=== PATIENT | male | born 1990 | race American Indian/Alaskan Native ===

== ENCOUNTER 2017-01-05 00:48 | Emergency (ER) | payer SELFPAY ==
[2017-01-05 01:48] VITALS: BP 121/71
[2017-01-05] MEDS ORDERED: XYLOCAINE 1% MPF 5 mL INFILTRATI ONE (05:49)
[2017-01-05] MEDS ORDERED: ROCEPHIN IM ONE (05:49)
[2017-01-05] MEDS ORDERED: ZITHROMAX PO ONE (05:49)
--- NOTE | 2017-01-05 05:53 | Emergency Department Report ---
ED Male HPI - General Chief complaint: Urogenital-Male Stated complaint: PENILE DISCOMFORT Time Seen by Provider: 01/05/17 05:42 Source: patient Mode of arrival: Ambulatory Limitations: No Limitations - History of Present Illness Initial comments: This is a 26-year-old male nontoxic, well nourished in appearance, no acute signs of distress the ED complaining of penile discharge with foul odor and painful ulcer to the penile area. Patient that he had unprotected sex last week followed by developing these symptoms 2 days after. Patient denies any history of HIV or STD exposure. Patient denies any allergies or past medical history. Denies any testicle pain, dysuria, polyuria, back pain, bowel pain, testicular swelling, nausea, vomiting, pelvic pain, chest pain, shortness of breath, or numbness or tingling. MD Complaint: penile discharge, other (penile ulcer) -: Gradual, days(s) (2) Location: penis Radiation: none Severity: mild Severity scale (0 -10): 6 Quality: aching Consistency: constant Improves with: none Worsens with: none discharge, other (ulcer). denies: swelling, mass, rash, urinary retention, blood in urine, dysuria, fever, nausea/vomiting, incontinence - Related Data Sexually active: Yes Previous Rx's Medication Instructions Recorded Last Taken Type Acyclovir [Zovirax Cap] 200 mg PO 5XD 10 Days 01/05/17 Unknown Rx Allergies Allergy/AdvReac Type Severity Reaction Status Date / Time No Known Allergies Allergy Unverified 01/05/17 02:46 ED Review of Systems ROS: Stated complaint: PENILE DISCOMFORT Other details as noted in HPI Constitutional: denies: chills, fever Eyes: denies: eye pain, eye discharge, vision change ENT: denies: ear pain, throat pain Respiratory: denies: cough, shortness of breath, wheezing Cardiovascular: denies: chest pain, palpitations Endocrine: no symptoms reported Gastrointestinal: denies: abdominal pain, nausea, diarrhea Genitourinary: denies: urgency, dysuria Musculoskeletal: denies: back pain, joint swelling, arthralgia Skin: denies: rash, lesions Neurological: denies: headache, weakness, paresthesias Psychiatric: denies: anxiety, depression Hematological/Lymphatic: denies: easy bleeding, easy bruising ED Past Medical Hx - Past Medical History Previous Medical History?: No - Surgical History Past Surgical History?: No - Social History Smoking Status: Current Every Day Smoker Substance Use Type: Alcohol - Medications Home Medications: Home Medications Medication Instructions Recorded Confirmed Last Taken Type Acyclovir [Zovirax Cap] 200 mg PO 5XD 10 Days 01/05/17 Unknown Rx ED Physical Exam - General Limitations: No Limitations General appearance: alert, in no apparent distress - Head Head exam: Present: atraumatic, normocephalic, normal inspection - Eye Eye exam: Present: normal appearance, PERRL, EOMI. Absent: scleral icterus, conjunctival injection, nystagmus, periorbital swelling, periorbital tenderness Pupils: Present: normal accommodation - ENT ENT exam: Present: normal exam, normal orophraynx, mucous membranes moist, TM's normal bilaterally, normal external ear exam - Neck Neck exam: Present: normal inspection, full ROM. Absent: tenderness, meningismus, lymphadenopathy, thyromegaly - Respiratory Respiratory exam: Present: normal lung sounds bilaterally. Absent: respiratory distress, wheezes, rales, rhonchi, stridor, chest wall tenderness, accessory muscle use, decreased breath sounds, prolonged expiratory - Cardiovascular Cardiovascular Exam: Present: regular rate, normal rhythm, normal heart sounds. Absent: bradycardia, tachycardia, irregular rhythm, systolic murmur, diastolic murmur, rubs, gallop - GI/Abdominal GI/Abdominal exam: Present: soft, normal bowel sounds. Absent: distended, tenderness, guarding, rebound, rigid, diminished bowel sounds - Rectal Rectal exam: Present: deferred - exam: Present: normal inspection, urethral discharge. Absent: testicular tenderness, scrotal swelling, vertical testicular lie, circumcision External exam: Present: normal external exam, lesions. Absent: erythema, swelling, lacerations, ecchymosis, bleeding - Extremities Exam Extremities exam: Present: normal inspection, full ROM, normal capillary refill. Absent: tenderness, pedal edema, joint swelling, calf tenderness - Back Exam Back exam: Present: normal inspection, full ROM. Absent: tenderness, CVA tenderness (R), CVA tenderness (L), muscle spasm, paraspinal tenderness, vertebral tenderness, rash noted - Neurological Exam Neurological exam: Present: alert, oriented X3, CN II-XII intact, normal gait, reflexes normal - Psychiatric Psychiatric exam: Present: normal affect, normal mood - Skin Skin exam: Present: warm, dry, intact, normal color. Absent: rash ED Course Vital Signs 01/05/17 01/05/17 01:47 02:41 Temperature 98.6 F 98.6 F Pulse Rate 70 70 Respiratory 18 18 Rate Blood Pressure 121/71 Blood Pressure 121/71 [Right] O2 Sat by Pulse 100 100 Oximetry - Reevaluation(s) Reevaluation #1: 01/05/17 05:55 Patient is speaking in full sentences with no signs of distress. ED Medical Decision Making - Medical Decision Making ED course; this is a 26-year-old male that presents to the ED with genital herpes and possible STD exposure 1- patient was examined by myself. Patient stated he does not want a provide a urine exam or gonorrhea chlamydia and just wants to be medically treated. I instructed patient that I wanted to rule out UTI but patient stated that it is highly doubt it is urinary tract infection and stated it is most likely a sexually transmitted disease. 2- patient received Rocephin and azithromycin ED. 3- patient was instructed to follow-up with her primary care doctor in 3-5 days or if symptoms continue or worsen return to emergency room as was possible. 4- patient received acyclovor at discharge and was instructed not to consume any alcohol during treatment. 5- At time time of discharge, the patient does not seem toxic or ill in appearance. No acute signs of distress noted. Patient agrees to discharge treatment plan of care. No further questions noted by the patient. Critical care attestation.: If time is entered above; I have spent that time in minutes in the direct care of this critically ill patient, excluding procedure time. ED Disposition Clinical Impression: Possible exposure to STD Herpes, genital Qualifiers: Herpes simplex infection site: penis Qualified Code(s): A60.01 - Herpesviral infection of penis Disposition: DC-01 TO HOME OR SELFCARE Is pt being admited?: No Does the pt Need Aspirin: No Condition: Stable Instructions: Genital Herpes Simplex (ED), Safe Sex (ED), Sexually Transmitted Diseases (ED), Acyclovir (By mouth) Additional Instructions: follow-up with your primary care doctor in 3-5 days or if symptoms continue or worsen return to emergency room as was possible. Finish full course of antibiotics that was prescribed Did not consume any alcohol while taking Acyclovir as it may be fatal. Prescriptions: Acyclovir [Zovirax Cap] 200 mg PO 5XD 10 Days Referrals: PRIMARY CAREMD [Referring] - 3-5 Days YU HERMAN MD [Staff Physician] - 3-5 Days [facility] [Outside] - 3-5 Days [facility] [Outside] - 3-5 Days Forms: Work/School Release Form(ED)
== END 2017-01-05 06:39 | disposition home or self-care (01) ==
LOC: ED 00:48
DX: A60.01 Herpesviral infection of penis (principal); F17.200 Nicotine dependence, unspecified, uncomplicated
CPT/HCPCS: 96372; 99282; J0696